=== PATIENT | male | born 1925 | race Caucasian/White ===

== ENCOUNTER 2016-11-16 16:32 | Emergency (ER) | payer MEDICARE, OTHER ==
[~2016-11-16] VITALS: Ht 172.7 cm; Wt 81.6 kg
[2016-11-16 16:55] LABS: BASOPHILS % (AUTO) 0 % (0-10); EOSINOPHILS % (AUTO) 0 % (0-10); LYMPHOCYTES % (AUTO) 13 % (12-44); MEAN CORPUSCULAR HEMOGLOBIN 29 PG (25-34); MEAN CORPUSCULAR HGB CONC 34 G/DL (32-36); MEAN CORPUSCULAR VOLUME 85 FL (80-99); MEAN PLATELET VOLUME 9.3 FL (7.4-10.4); MONOCYTES # (AUTO) 0.5 X 10^3 (0.0-1.0); MONOCYTES % (AUTO) 6 % (0-12); NEUTROPHILS # (AUTO) 6.3 X 10^3 (1.8-7.8); NEUTROPHILS % (AUTO) 81 % (42-75); PLATELET COUNT 237 10^3/uL (130-400); RED BLOOD COUNT 4.51 10^6/uL (4.35-5.85); RED CELL DISTRIBUTION WIDTH 13.7 % (10.0-14.5); WHITE BLOOD COUNT 7.8 10^3/uL (4.3-11.0)
--- NOTE | 2016-11-16 16:55 | ED Trauma-Multisystem ---
General Chief Complaint: Trauma POV Arrival Activation Stated Complaint: HEAD LACERATION Source of Information: Patient Exam Limitations: No Limitations History of Present Illness Time Seen by Provider: 16:45 Initial Comments The patient is an 89-year-old white male sustained a fall from a ladder immediately prior to admission. He states that he was standing on the top step of an 8 foot step ladder and fell forward striking his forehead. He is alert at the time of examination although the nurses report some apparent slurring of speech. Allergies and Home Medications Allergies Coded Allergies: No Known Drug Allergies (Unverified , 11/16/16) Physical Exam Vital Signs General Appearance: Mild Distress, Moderate Distress, Other (the patient responded to questioning. When asked how high on the stepladder he reported top step) Head: Other (there is a large hematoma in the midline above both medial brows. A small puncture is noted and there is blood about forehead and nose. There appears to be early ecchymosis over the right upper lid.) Eyes: Bilateral Eye Normal Inspection, Bilateral Eye PERRL Ears, Nose, Throat: Decreased Hearing Neck: Other (in c-collar) Cardiovascular: Regular Rate, Rhythm, No Edema, No Gallop, No JVD, No Murmur, Normal Peripheral Pulses Respiratory: Decreased Breath Sounds Gastrointestinal: Normal Bowel Sounds, No Organomegaly, No Pulsatile Mass, Non Tender, Soft Back: Normal Inspection Extremity: Normal Capillary Refill, Normal Inspection, Normal Range of Motion, Non Tender, No Calf Tenderness, No Pedal Edema Neurologic/Psychiatric: Alert, Oriented x3, No Motor/Sensory Deficits, Normal Mood/Affect Skin: Ecchymosis (large and fluctuant hematoma mid forehead just above the brows. Ecchymosis is extending to right upper lid) Lymphatic: No Adenopathy Comments The patient shows equal photograph developer bilaterally. He is able to perform finger to nose and alternating finger to thumb movements. He is able to straight leg lift bilaterally on command. Hackberry Coma Score Best Eye Response (Hackberry): (4) Open Spontaneously Best Verbal Response (Aryan): (5) Oriented Best Motor Response (Hackberry): (6) Obeys Commands Progress/Results/Core Measures Results/Orders Lab Results Laboratory Tests Test 11/16/16 16:45 11/16/16 17:10 Range/Units White Blood Count 7.8 4.3-11.0 10^3/uL Red Blood Count 4.51 4.35-5.85 10^6/uL Hemoglobin 12.9 L 13.3-17.7 G/DL Hematocrit 38 L 40-54 % Mean Corpuscular Volume 85 80-99 FL Mean Corpuscular Hemoglobin 29 25-34 PG Mean Corpuscular Hemoglobin Concent 34 32-36 G/DL Red Cell Distribution Width 13.7 10.0-14.5 % Platelet Count 237 130-400 10^3/uL Mean Platelet Volume 9.3 7.4-10.4 FL Neutrophils (%) (Auto) 81 H 42-75 % Lymphocytes (%) (Auto) 13 12-44 % Monocytes (%) (Auto) 6 0-12 % Eosinophils (%) (Auto) 0 0-10 % Basophils (%) (Auto) 0 0-10 % Neutrophils # (Auto) 6.3 1.8-7.8 X 10^3 Lymphocytes # (Auto) 1.0 1.0-4.0 X 10^3 Monocytes # (Auto) 0.5 0.0-1.0 X 10^3 Eosinophils # (Auto) 0.0 0.0-0.3 10^3/uL Basophils # (Auto) 0.0 0.0-0.1 10^3/uL Prothrombin Time 13.6 12.2-14.7 SEC INR Comment 1.1 0.8-1.4 Sodium Level 139 135-145 MMOL/L Potassium Level 4.2 3.6-5.0 MMOL/L Chloride Level 103 98-107 MMOL/L Carbon Dioxide Level 25 21-32 MMOL/L Anion Gap 11 5-14 MMOL/L Blood Urea Nitrogen 33 H 7-18 MG/DL Creatinine 1.76 H 0.60-1.30 MG/DL Estimat Glomerular Filtration Rate 37 BUN/Creatinine Ratio 19 Glucose Level 136 H 70-105 MG/DL Calcium Level 9.4 8.5-10.1 MG/DL Total Bilirubin 0.8 0.1-1.0 MG/DL Aspartate Amino Transf (AST/SGOT) 24 5-34 U/L Alanine Aminotransferase (ALT/SGPT) 13 0-55 U/L Alkaline Phosphatase 77 40-136 U/L Total Protein 7.1 6.4-8.2 G/DL Albumin 4.6 H 3.2-4.5 G/DL Urine Color YELLOW Urine Clarity CLEAR Urine pH 7 5-9 Urine Specific [place] 1.015 L 1.016-1.022 Urine Protein 1+ H NEGATIVE Urine Glucose (UA) NEGATIVE NEGATIVE Urine Ketones NEGATIVE NEGATIVE Urine Nitrite NEGATIVE NEGATIVE Urine Bilirubin NEGATIVE NEGATIVE Urine Urobilinogen NORMAL NORMAL MG/DL Urine Leukocyte Esterase NEGATIVE NEGATIVE Urine RBC (Auto) NEGATIVE NEGATIVE Urine RBC NONE /HPF Urine WBC NONE /HPF Urine Squamous Epithelial Cells 0-2 /HPF Urine Crystals NONE /LPF Urine Bacteria NONE /HPF Urine Casts NONE /LPF Urine Mucus NEGATIVE /LPF Urine Culture Indicated NO My Orders Orders - GRICELDA ADAM MD Cbc With Automated Diff (11/16/16 16:42) Comprehensive Metabolic Panel (11/16/16 16:42) Protime With Inr (11/16/16 16:42) Ua Culture If Indicated (11/16/16 16:42) Ct Head/Cervical Spine Wo (11/16/16 16:44) Chest 1 View, Ap/Pa Only (11/16/16 17:00) Vital Signs/I&O Departure Communication Progress Notes Phone call was placed to [facility] call. I then spoke to Dr. Dodd of neurosurgery production supv at 1745 he agreed to accept the patient. I then spoke to Dr. Pires of the ER trauma staff. The patient will be sent there with the accumulated materials and a disc of the CT head and neck. Impression Impression: Primary Impression: fall Additional Impression: C1/C2 fracture Disposition: 02 XFER SHT-TRM HOSP Condition: Stable/Unchanged Transfer Transfer Facility: Transfer has been arranged to [facility] in [facility]. He will be taken to the emergency room by ambulance to see their service. I spoke to Dr. Neil Dodd of neurosurgery and he agreed to accept the patient in transfer Method of Transfer: EMS Departure-Patient Inst. Referrals: NOAH NEVAREZ DO (PCP) Primary Care Physician GRICELDA ADAM MD Nov 16, 2016 16:55
[2016-11-16 17:09] LABS: INR 1.1 (0.8-1.4); PROTHROMBIN TIME PATIENT 13.6 SEC (12.2-14.7)
--- NOTE | 2016-11-16 17:13 | Diagnostic Imaging Report ---
INDICATION: Status post fall with chest pain. Frontal chest obtained at 04:56 p.m. Heart and mediastinal silhouette are unremarkable. There are mild chronic-appearing increased interstitial markings. There is no acute consolidation, pneumothorax, or pleural fluid. There is no overt bony abnormality. IMPRESSION: Mild chronic-appearing increased interstitial markings. No acute process in the chest. Dictated by: Dictated on workstation # [id number]
[2016-11-16 17:18] LABS: ALBUMIN 4.6 G/DL (3.2-4.5); BILIRUBIN,TOTAL 0.8 MG/DL (0.1-1.0); CALCIUM 9.4 MG/DL (8.5-10.1); CREATININE SERUM 1.76 MG/DL (0.60-1.30); POTASSIUM 4.2 MMOL/L (3.6-5.0); TOTAL PROTEIN 7.1 G/DL (6.4-8.2)
[2016-11-16 17:24] LABS: BILIRUBIN,URINE NEGATIVE (NEGATIVE); KETONES,URINE NEGATIVE (NEGATIVE); LEUKOCYTE ESTERASE ,URINE NEGATIVE (NEGATIVE); NITRITE,URINE NEGATIVE (NEGATIVE); PH,URINE 7 (5-9); PROTEIN,URINE 1+ (NEGATIVE); UROBILINOGEN,URINE NORMAL (NORMAL)
--- NOTE | 2016-11-16 17:32 | Diagnostic Imaging Report ---
INDICATION: Fall from ladder with head and neck pain. CT brain findings: Noncontrast brain CT is performed. There are mild diffuse atrophic changes. There are patchy low-density changes in the deep white matter compatible with chronic ischemic change. There is no acute intracranial hemorrhage. Ventricles are normal in size for age. Orbital contents are unremarkable. Calvarial windows demonstrate no calvarial fracture. There is hyperdense fluid compatible with blood in the maxillary sinuses on both sides. There appears to be a fracture of the anterior wall of the right maxillary sinus with slight posterior displacement. CT cervical spine findings: Axial slices are obtained with sagittal and coronal reconstructions without contrast. There are fractures of the anterior arch of C1 as well as the posterior arch of C1. There appears to be a nondisplaced fracture of the foramen magnum dorsally, not well seen on the head study. There is displacement of the occiput posteriorly with narrowing of the cervicomedullary junction. There also appears to be avulsion of the tip of the dens process of C2. Remainder of the cervical spine demonstrates diffuse degenerative changes. There is no other fracture visualized. There is facet degenerative change throughout the cervical region. There is anterolisthesis of C5 on C6 which may be chronic. IMPRESSION: 1. CT brain demonstrates atrophic changes and chronic changes in the deep white matter with no acute intracranial hemorrhage. There is fluid compatible with blood in the maxillary sinuses on both sides with a fracture of the anterior wall of the right maxillary sinus. There is frontal scalp hematoma. There is a nondisplaced fracture of the dorsal aspect of foramen magnum, better seen on the C-spine study. 2. CT cervical spine demonstrates fractures of the C1 vertebrae involving the anterior arch and posterior arch, with displacement of C1 and the occiput posteriorly relative to the dens. There are calcific fragments of the dens which are of uncertain age. There are also appears to be avulsion of the tip of the dens process of C2. This appears to narrow the cervicomedullary junction. There is underlying degenerative change of the lower cervical spine with anterior subluxation of C5 on C6. Dictated by: Dictated on workstation # [id number]
[2016-11-16 17:37] LABS: SQUAMOUS EPITHELIAL CELL,UR 0-2 /HPF
[2016-11-16] MEDS ORDERED: fentaNYL INJECTION 100 MCG/2 ML AMP IVP PRN (18:30)
[2016-11-16 19:10] VITALS: BP 177/101
== END 2016-11-16 19:10 | disposition short-term general hospital (02) ==
LOC: EDUNIT# 16:32 → ER 16:35
DX: S12.030A Displaced posterior arch fracture of first cervical vertebra, initial encounter for closed fracture (principal); S01.83XA Puncture wound without foreign body of other part of head, initial encounter; S00.11XA Contusion of right eyelid and periocular area, initial encounter; M47.812 Spondylosis without myelopathy or radiculopathy, cervical region; W11.XXXA Fall on and from ladder, initial encounter; Y99.8 Other external cause status
CPT/HCPCS: 36415; 70450; 71010; 72125; 80053; 81000; 85025; 85610; 99285